=== PATIENT | male | born 1995 | race African-American/Black ===

== ENCOUNTER 2021-11-11 00:06 | Emergency (ER) | payer BC ==
[2021-11-11] MEDS ORDERED: Ibuprofen 800 MG TAB ONE (01:39)
[2021-11-11 16:50] LABS: SARS-CoV-2 PCR by NAA DETECTED (NotDetected)
== END 2021-11-11 02:10 | disposition home or self-care (01) ==
LOC: MADERS 00:06
DX: U07.1 COVID-19 (principal); F17.200 Nicotine dependence, unspecified, uncomplicated
CPT/HCPCS: 99283; U0003; U0005